=== PATIENT | male | born 2005 | race Caucasian/White ===

== ENCOUNTER 2024-10-04 14:22 | Emergency (ER) | payer MEDICAID ==
[~2024-10-04] VITALS: Ht 172.7 cm; Wt 65.0 kg
[2024-10-04 14:45] VITALS: O2SAT 100
[2024-10-04 17:16] LABS: HEMATOCRIT. 40.9 % (42.0-52.0); HEMOGLOBIN. 13.6 g/dL (14.0-18.0); MEAN CORPUSCULAR HEMOGLOBIN 26.7 pg (28.0-32.0); MEAN CORPUSCULAR HGB CONC 33.4 g/dL (31.0-37.0); MEAN CORPUSCULAR VOLUME 80.1 fL (80.0-94.0); PLATELET 259 x1000/uL (130-400)
[2024-10-04 17:17] LABS: DIFFERENTIAL COMMENT 1
[2024-10-04 17:26] LABS: CARBON DIOXIDE 25 mEq/L (21-32); CHLORIDE 101 mEq/L (98-107); POTASSIUM 3.9 mEq/L (3.5-5.1); SODIUM 136 mEq/L (136-145)
[2024-10-04 17:28] LABS: CALCIUM 10.2 mg/dL (8.7-10.4)
[2024-10-04 17:32] LABS: CREATININE 1.1 mg/dL (0.6-1.3); GLUCOSE 101 mg/dL (70-105); UREA NITROGEN BLOOD 15 mg/dL (9-23)
[2024-10-04] MEDS: ACETAMINOPHEN 325MG TABLET PO STA (17:43)
[2024-10-04] MEDS: IBUPROFEN 600MG TABLET PO STA (17:43)
[2024-10-04] MEDS: IBUPROFEN 800MG TABLET PO NR (17:45)
[2024-10-04] MEDS: ACETAMINOPHEN 500MG TABLET PO NR (17:45)
[2024-10-04 18:06] LABS: CLARITY URINE CLEAR (CLEAR); COLOR URINE DARK YELLOW (YELLOW); GLUCOSE URINE NEGATIVE (NEGATIVE); KETONES URINE 2+ (NEGATIVE); LEUKOCYTE ESTERASE URINE TRACE (NEGATIVE); NITRITE URINE NEGATIVE (NEGATIVE); OCCULT BLOOD URINE NEGATIVE (NEGATIVE); PH URINE 7.5 (4.5-8.0); PROTEIN URINE TRACE (NEGATIVE); SPECIFIC GRAVITY URINE 1.034 (1.005-1.030)
[2024-10-04 18:21] LABS: BACTERIA URINE TRACE; RBC URINE 0-2 /hpf (0-2); SQUAMOUS EPITHELIAL CELL URINE RARE /lpf (RARE/1+); WBC URINE 0-2 /hpf (0-2)
[2024-10-04] MEDS ORDERED: ACET-2708 MT (18:27)
[2024-10-04 18:42] VITALS: BP 109/55; PULSE 100; RESP 18; TEMP 37.11408; O2SAT 100
[2024-10-04] MEDS ORDERED: AMOX1TAB16 MT (18:46)
[2024-10-04 21:18] LABS: PLATELET ESTIMATE NORMAL
== END 2024-10-04 18:54 | disposition home or self-care (01) ==
LOC: ER 14:22
DX: B34.9 Viral infection, unspecified (principal); Z20.822 Contact with and (suspected) exposure to COVID-19
CPT/HCPCS: 36415; 71045; 80048; 81003; 85025; 87070; 87426; 87430; 99284